=== PATIENT | female | born 1960 ===

== ENCOUNTER 2018-06-06 12:19 | Outpatient (CLI) | payer OTHER | END 2018-06-06 12:20 | disposition home or self-care (01) | LOC: C.MRIC 12:19 ==

== ENCOUNTER 2018-06-11 16:17 | Outpatient (CLI) | payer OTHER | END 2018-06-11 16:18 | disposition home or self-care (01) | LOC: C.MRIC 16:17 | DX: M25.521 Pain in right elbow (principal); M25.572 Pain in left ankle and joints of left foot ==